=== PATIENT | female | born 1985 ===

== ENCOUNTER 2018-06-30 09:41 | Inpatient (IN) | payer OTHER ==
[~2018-06-30] VITALS: Ht 149.9 cm; Wt 2.7 kg
== END 2018-07-06 14:58 | disposition home or self-care (01) | DRG 766 ==
LOC: OB/GYN 07-01 09:40 → LDR 07-02 09:31 → O/R 07-03 14:03 → OB/GYN 07-03 15:41
PROC: 10D00Z1 Extraction of Products of Conception, Low, Open Approach (ICD-10-PCS; principal; 2018-07-02)
PROC: 4A1HXCZ Monitoring of Products of Conception, Cardiac Rate, External Approach (ICD-10-PCS; 2018-07-02)
PROC: 3E033VJ Introduction of Other Hormone into Peripheral Vein, Percutaneous Approach (ICD-10-PCS; 2018-07-02)
DX: O61.0 Failed medical induction of labor (principal); O62.0 Primary inadequate contractions; Z3A.41 41 weeks gestation of pregnancy; Z37.0 Single live birth

== ENCOUNTER 2020-08-23 13:54 | Day surgery (SDC) | payer OTHER ==
--- NOTE | 2020-08-22 18:29 | NUR ---
SE RECIBE PACIENTE ALERTA ORIENTADA X 3 ESFERAS REFIERE TENER 6 SEMANAS DE EMBARAZO Y ESTAR [place] DESDE ART, PRESENTA KATELYN DOLOR PELVICO. SE UBICA EN AREA DE OBSERVACION.
--- NOTE | 2020-08-22 20:08 | NUR ---
PACIENTE ALERTA Y ORIENTADA X3. SE ORIENTO SOBRE TX Y PROCEDIMIENTO A REALIZAR Y REFIRIO ENTENDER. SE REALIZO MUESTRAS DE LABORATORIO BAJO MEDIDAS ASEPTICAS. CANALIZACION PATENTE Y HELDER DE EDEMA Y ERITEMA. SE ADMINISTRO MEDICAMENTOS ORDENADOS POR MD. SE MANTIENE BAJO OBSERVACION POR CAMBIOS SIGNIFICATIVOS. LE REALIZAN SONOGRAMA TRANSVAGINAL.
--- NOTE | 2020-08-22 22:43 | NUR ---
SE ORIENTO A PACIENTE SOBRE MUESTRA DE TIPO Y SHARON Y REFIRIO ENTENDER. SE REALIZA MUESTRA DE LABORATORIO BAJO MEDIDAS ASEPTICAS Y SE ENVIA A LABORATORIO.
--- NOTE | 2020-08-22 23:19 | NUR ---
SE RECIBE PTE EN CUBICULO #7 EN CAMA CON BARRANDAS ELEVADA Y TIMBRE ACCESIBLE PTE ALERTA Y CONCIENTE POR 3, PTE SE MANTIENE EN OBSERVACION Y BAJO TRATAMIENTO. PTE EN ESPERA DEL DR BOWERS
[~2020-08-23] VITALS: Ht 149.9 cm; Wt 56.2 kg
--- NOTE | 2020-08-23 08:00 | NUR ---
SE RECIBE PACIENTE FEMENINA DE 35 ANOS DE EDAD. AL MOMENTO DE ROSANA, PACIENTE SE ENCUENTRA EN ARIC CON BARANDAS ELEVADAS DESPIERTA Y ALERTA. AREA DE VENOPUNCION PATENTE BAJANDO UN RINGER LACTATEED A 150ML POR HORA HELDER DE EDEMAS, ENROJECIMIENTO Y DOLOR AL TACTO. POR EL MOMENTO PACIENTE NO REFIERE [place] ACTIVO. SE MANTIENE PACIENTE EN OBSERVACION PARA CAMBIOS SIGNIFICATIVOS EN ROMERO CONDICION
--- NOTE | 2020-08-23 12:00 | NUR ---
PACIENTE ALERTA Y ORIENTADA, SE OBSERVA PALIDA Y CON MAREOS. SE UBICA A PACIENTE EN CAMA, VENOPUNCION NO SE ENCUENTRA PATENTE EL CUAL SE INICIA CANALIZACION EN ANTEBRAZO LT. SE AMDINISTRA MEDICAMENTOS YOBANI ORDEN MEDICA.SE UBICA A PACIENTE EN UNIDAD DE CHEST PAIN Y SE COLOCA EN MONITOR CARIDACO. SE STEFFI MUESTRA DE LABORATORIO CON MEDIDAS ASEPTICA.
--- NOTE | 2020-08-23 12:31 | NUR ---
PTE ALERTA Y ORIENTADA POR AMBER DIMENSIONES, CON BUEN PATRON RESPIRATORIO, SE REALIZA LA STEFFI DE MUESTRA DEL COVID-19 MOLECULAR, Y STEFFI DE BP:105/65
== END 2020-08-23 22:00 | disposition home or self-care (01) ==
LOC: CIR.AMB 13:54 → EDSTATUS 14:00 → O/R 21:50 → CIR.AMB 22:00
PROVIDERS: ATTEND Obstetrics & Gynecology Obstetrics
DX: O02.1 Missed abortion (principal)